=== PATIENT | male | born 1990 | race American Indian/Alaskan Native ===

== ENCOUNTER 2016-11-16 22:08 | Emergency (ER) | payer SELFPAY ==
[2016-11-16 23:00] VITALS: BP 131/66
--- NOTE | 2016-11-17 03:14 | Emergency Department Report ---
HPI - General Chief Complaint: Sore Throat Time Seen by Provider: 11/17/16 01:13 - HPI HPI: 26-year-old male presents today stating that something is stuck in his chart since yesterday. Patient states that he was brushing his teeth and he had the sensation at that time. Denies difficulty in breathing or swallowing. Denies fever, chills, nausea, vomiting, chest pain, shortness of breath, abdominal pain. Denies history of similar symptoms. ED Past Medical Hx - Past Medical History Previous Medical History?: No - Surgical History Past Surgical History?: No - Social History Smoking Status: Current Every Day Smoker Substance Use Type: Marijuana ED Review of Systems ROS: Stated complaint: THROAT PAIN/FB STUCK Other details as noted in HPI Constitutional: denies: chills, fever, malaise Eyes: denies: eye pain ENT: throat pain. denies: ear pain, congestion Respiratory: denies: cough, shortness of breath, wheezing Cardiovascular: denies: chest pain, palpitations Endocrine: no symptoms reported Gastrointestinal: denies: abdominal pain, nausea, vomiting Skin: denies: rash Neurological: denies: headache, weakness Physical Exam - Physical Exam Vital Signs: Vital Signs 11/16/16 22:55 Temperature 98.5 F Pulse Rate 78 Respiratory 20 Rate Blood Pressure 131/66 O2 Sat by Pulse 98 Oximetry Physical Exam: GENERAL: The patient is well-developed and well-nourished. Patient is in NAD. HEAD: Normocephalic. Atraumatic. EYES: PERRL. EARS: External auditory canals and tympanic membranes clear; hearing grossly intact. NOSE: Normal nasal mucosa with no nasal discharge. THROAT: No erythema, swelling or exudates. NECK: Supple, nontender, without lymphadenopathy. CHEST/LUNGS: Clear to auscultation throughout. HEART/CARDIOVASCULAR: Regular rate and rhythm. No murmurs, rubs or gallops. ABDOMEN: Abdomen is soft, nontender. Bowel sounds normoactive. No guarding or rebound tenderness. EXTREMITIES: Peripheral pulses intact. Capillary refill less than 2 seconds. NEURO: Alert and oriented x 3. Normal gait. ED Course Vital Signs 11/16/16 22:55 Temperature 98.5 F Pulse Rate 78 Respiratory 20 Rate Blood Pressure 131/66 O2 Sat by Pulse 98 Oximetry ED Medical Decision Making - Lab Data Vital Signs 11/16/16 22:55 Temperature 98.5 F Pulse Rate 78 Respiratory 20 Rate Blood Pressure 131/66 O2 Sat by Pulse 98 Oximetry - Medical Decision Making 26-year-old male presents today complaining of a foreign body in his throat. His physical exam is unremarkable. Patient has been provided with a referral for ENT specialist. Patient is in no acute distress at this time. He will be discharged home and is encouraged to follow up with a primary care provider. He is encouraged to return to the emergency room for any worsening symptoms. Critical care attestation.: If time is entered above; I have spent that time in minutes in the direct care of this critically ill patient, excluding procedure time. ED Disposition Clinical Impression: Foreign body sensation in throat Disposition: DISCHARGED TO HOME OR SELFCARE Is pt being admited?: No Does the pt Need Aspirin: No Condition: Stable Instructions: Foreign Body in Pharynx (ED) Additional Instructions: Follow-up with primary care provider and ENT specialist. Return to the emergency department if symptoms worsen. Referrals: PRIMARY MD JAIR [Primary Care Provider] - 3-5 Days [facility]NT [facility] [Provider Group] - 3-5 Days [facility] [Provider Group] - 3-5 Days Forms: Work/School Release Form(ED) Time of Disposition: 03:16
== END 2016-11-17 03:18 | disposition home or self-care (01) ==
LOC: ED 22:08
DX: R09.89 Other specified symptoms and signs involving the circulatory and respiratory systems (principal); F17.200 Nicotine dependence, unspecified, uncomplicated; F12.10 Cannabis abuse, uncomplicated
CPT/HCPCS: 99282